=== PATIENT | female | born 1950 | race Caucasian/White ===

== ENCOUNTER 2020-07-11 12:53 | Outpatient (CLI) | payer MEDICARE, SELFPAY ==
--- NOTE | ~2020-07-11 | MM_ITS ---
EXAMINATION: MM screening [facility] BI w ying HISTORY: Screening mammogram TECHNIQUE: Craniocaudal and mediolateral oblique 3-D tomosynthesis images were obtained and synthetic 2-D images were generated. CAD analysis was submitted and interpreted. COMPARISON: 05/10/2019, 05/05/2018, 04/24/2017 BREAST PARENCHYMAL COMPOSITION: The breasts are heterogeneously dense, which may obscure small masses . FINDINGS: Scattered benign-appearing calcifications are present. There is no evidence of suspicious m ass, calcification, or architectural distortion to suggest malignancy in either breast. There has bee n no suspicious interval change. IMPRESSION: 1. No mammographic evidence of malignancy. 2. Recommend routine screening mammography in one year. BI-RADS Category 2: Benign finding(s). Reviewed, dictated and finalized at location A.
== END 2020-07-11 12:54 | disposition home or self-care (01) ==
PROVIDERS: PCP Internal Medicine; Visit Provider Student in an Organized Health Care Education/Training Program
DX: Z12.31 Encounter for screening mammogram for malignant neoplasm of breast (principal)
CPT/HCPCS: 77063; 77067

== ENCOUNTER 2021-08-21 10:14 | Outpatient (CLI) | payer MEDICARE, SELFPAY ==
--- NOTE | ~2021-08-21 | MM_ITS ---
EXAMINATION: MM screening [facility] BI w ying HISTORY: Screening mammogram TECHNIQUE: Craniocaudal and mediolateral oblique 3-D tomosynthesis images were obtained and synthetic 2-D images were generated. CAD analysis was submitted and interpreted. COMPARISON: 07/11/2020, 05/10/2019, 05/05/2018 bilateral screening mammogram examinations BREAST PARENCHYMAL COMPOSITION: There are scattered areas of fibroglandular density. FINDINGS: There is no evidence of suspicious mass, calcification, or architectural distortion to sugg est malignancy in either breast. There has been no suspicious interval change. IMPRESSION: 1. No mammographic evidence of malignancy. 2. Recommend routine screening mammography in one year. BI-RADS Category 1: Negative Reviewed, dictated and finalized at location A. 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
== END 2021-08-21 10:15 | disposition home or self-care (01) ==
LOC: ANHIMG 10:17
PROVIDERS: PCP Internal Medicine; Visit Provider Student in an Organized Health Care Education/Training Program
DX: Z12.31 Encounter for screening mammogram for malignant neoplasm of breast (principal)
CPT/HCPCS: 77063; 77067

== ENCOUNTER 2022-08-28 14:38 | Outpatient (CLI) | payer MEDICARE, SELFPAY ==
--- NOTE | ~2022-08-28 | DEXA_ITS ---
Bone Density Report Name: IHSAN SIBLEY Age: 72 Sex: Female Ethnicity: White Date of : 1950 Indication: postmenopausal; screening for osteoporosis; height loss; rheumatoid arthritis; Referring Provider: RUMA ANDRE Study: Bone densitometry was performed. Exam Date: August 28, 2022 Accession number: [id number] Bone Density: Region BMD T-score Z-score Classification AP Spine(L1, L2) 0.856 -1.1 0.9 Osteopenia World Health Organization criteria for BMD impression classify patients as: Normal (T-score at or above -1.0), Osteopenia (T-score between -1.0 and -2.5), or Osteoporosis (T-score at or below -2.5). Previous Exams: Region Exam Age BMD T-score BMD Change BMD Change Date g/cm2 vs Baseline vs Previous AP Spine (L1-L2) 08/28/2022 72 0.856 -1.1 -0.102 (-10.7% -0.102 (-10.7% 06/23/2017 67 0.959 -0.2 *Denotes significance at 95% confidence level, LSC for AP Spine = 0.022 g/cm2 Clinical Information Provided by Patient: Has rheumatoid arthritis Patient maximum height was 65.5 Menopause Age: 55 No regular weight bearing exercise Drinks caffeinated beverages Onset of menses at age 15 Number of children 3 Impression: The patient has low bone mass, based on the Total Spine T-score. The BMD for the AP Spine (L1-L2) decreased, changing by -10.7% since the last DXA exam. Discussion: BONE DENSITY IS LOW AT ONE OR MORE SKELETAL SITES. This patient's lowest T-score is low at one or more skeletal sites. It meets the World Health Organization's (WHO) criteria for ?low bone mass? (T-score between -1.0 and -2.5). The patient's 10-year risk of fracture as calculated by FRAX is less than the threshold where pharmacological therapy is recommended by the National Osteoporosis Foundation (NOF). However, all treatment decisions require clinical judgment and consideration of individual patient factors, including patient preferences, comorbidities, previous drug use, risk factors not captured in the FRAX model (e.g., frailty, falls, vitamin D deficiency, increased bone turnover, interval significant decline in bone density) and possible under or overestimation of fracture risk by FRAX. The patient should follow a healthful lifestyle (good nutrition with adequate calcium and vitamin D, and appropriate weight-bearing exercise). Follow-Up: Consider repeating this study in 2 years to reassess this patient's status, or sooner if there is some new clinical indication. Reported by: JOSE ALBERTO on 08/28/2022 3:08:00 PM. Reviewed, dictated and finalized at location AJoe GARVIN
--- NOTE | ~2022-08-28 | MM_ITS ---
EXAMINATION: MM screening [facility] BI w ying HISTORY: Screening TECHNIQUE: Craniocaudal and mediolateral oblique 3-D tomosynthesis images were obtained and synthetic 2-D images were generated. CAD analysis was submitted and interpreted. COMPARISON: Comparison to multiple prior studies sequentially, with oldest reviewed study dated 04/22. BREAST PARENCHYMAL COMPOSITION: There are scattered areas of fibroglandular density. FINDINGS: There is no evidence of suspicious mass, calcification, or architectural distortion to sugg est malignancy in either breast. There has been no suspicious interval change. IMPRESSION: 1. No mammographic evidence of malignancy. 2. Recommend routine screening mammography in one year. BI-RADS Category 1: Negative Reviewed, dictated and finalized at location A. NG CUTTER
== END 2022-08-28 14:39 | disposition home or self-care (01) ==
PROVIDERS: PCP Internal Medicine; Visit Provider Student in an Organized Health Care Education/Training Program
DX: Z12.31 Encounter for screening mammogram for malignant neoplasm of breast (principal); Z78.0 Asymptomatic menopausal state; M85.88 Other specified disorders of bone density and structure, other site
CPT/HCPCS: 77063; 77067; 77080

== ENCOUNTER 2023-04-03 10:50 | Outpatient (CLI) | payer MEDICARE, SELFPAY ==
--- NOTE | ~2023-04-03 | XR_ITS ---
XR abdomen/kub 1V 04/03/2023 11:08 INDICATION: Flank pain TECHNIQUE: KUB COMPARISON: 12/02/2006 FINDINGS: Bowel gas pattern is normal. There is no evidence of free air, mass, organomegaly, ascites or obstruction. No abnormal calculi are seen. The bones appear intact. There is moderate lumbar sp ondylosis with levoscoliosis. There are cholecystectomy clips. There are bilateral total hip arthropl asties. IMPRESSION: 1: No acute abdominal abnormality identified. Reviewed, dictated and finalized at location []
== END 2023-04-03 10:51 | disposition home or self-care (01) ==
LOC: ANHLAB 10:55 → ANHIMG 10:55
PROVIDERS: PCP Internal Medicine; Visit Provider Nurse Practitioner
DX: R19.7 Diarrhea, unspecified (principal); R14.0 Abdominal distension (gaseous); K56.699 Other intestinal obstruction unspecified as to partial versus complete obstruction
CPT/HCPCS: 74018

== ENCOUNTER 2023-04-04 09:56 | Outpatient (CLI) | payer MEDICARE, SELFPAY ==
[2023-04-04 11:49] LABS: Toxigenic C. Diff NEGATIVE (NEGATIVE)
== END 2023-04-04 09:57 | disposition home or self-care (01) ==
PROVIDERS: PCP Internal Medicine; Visit Provider Nurse Practitioner
DX: R14.0 Abdominal distension (gaseous) (principal); R19.7 Diarrhea, unspecified
CPT/HCPCS: 87177; 87209; 87269; 87493

== ENCOUNTER 2023-05-01 00:26 | Day surgery (SDC) | payer MEDICARE, SELFPAY ==
[2023-04-20 14:30] VITALS: BMI 33.0
--- NOTE | ~2023-05-01 | XR_ITS ---
EXAMINATION: XR abdomen/kub 1V DATE: 05/01/2023 11:22 INDICATION: Abdominal pain and distention. Post colonoscopy. TECHNIQUE: A supine view of the abdomen on 2 radiographs was obtained. COMPARISON: Abdomen radiograph 04/03/2023 FINDINGS: There is gaseous distention of the transverse colon. The small bowel is normal in caliber. Surgical clips in the right upper quadrant are likely from cholecystectomy. There are bilateral hip a rthroplasties. IMPRESSION: 1. Gaseous distention of the transverse colon, likely adynamic ileus. Reviewed, dictated and finalized at location A.
--- NOTE | 2023-05-01 08:10 | WPDANESEPPF ---
Anes - Initial Pre Proc Eval Procedure: Operation Date: 05/01/23 10:30 Proposed Procedures p Colonoscopy - Henry Vega MD Date/Time: 05/01/23 08:10 Surgeon: Henry Vega MD Pre Op Diagnosis: diarrhea, Patient Data Age: 73 Gender: F Height: 1.63 m Weight: 87.5 kg Allergies Allergy/AdvReac Type Severity Reaction Status Date / Time rofecoxib Allergy Severe GASTRIC Verified 05/01/23 09:34 ULCER ramipril Allergy Unknown SWELLING Verified 05/01/23 09:34 Home Medications Medication Instructions Recorded Confirmed Type Bifidobacterium infantis 10.5 mg 2 PO DAILY 06/19/20 04/03/23 History (10 million cell) chewable tablet (Align) azathioprine 50 mg tablet 50 mg PO BID 06/19/20 05/01/23 History diltiazem HCl 240 mg 240 mg PO DAILY 06/19/20 05/01/23 History capsule,extended release 24 hr duloxetine 60 mg capsule,delayed 60 mg PO DAILY 06/19/20 05/01/23 History release sprinkle esomeprazole magnesium 40 mg 40 mg PO DAILY 06/19/20 05/01/23 History capsule,delayed release hydroxychloroquine 200 mg tablet 400 mg PO DAILY 06/19/20 05/01/23 History losartan 100 mg tablet 100 mg PO DAILY 06/19/20 05/01/23 History multivitamin (Multiple Vitamins 1 tablet PO DAILY 06/19/20 05/01/23 History tablet) omega-3 fatty acids 1,000 mg 1,000 mg PO DAILY 06/19/20 05/01/23 History capsule (Fish Oil Concentrate) peg 400-propylene glycol 0.4 %-0.3 2 drop ophthalmic (eye) Q12H PRN 06/19/20 05/01/23 History % eye drops (Systane Ultra) Dry Eyes ropinirole 4 mg tablet,extended 4 mg PO DAILY 06/19/20 05/01/23 History release 24 hr metoprolol succinate 25 mg 25 mg PO DAILY 06/24/22 05/01/23 History tablet,extended release 24 hr calcium citrate 1,200 mg PO DAILY 04/20/23 05/01/23 History ferrous sulfate 325 mg PO DAILY 04/20/23 05/01/23 History Patient hx anesthesia problems: none Family hx anesthesia problems: none Results Review: All pre-operative results and documents have been reviewed as part of the pre-operative evaluation. [facility] Past Medical History Medical History Acid reflux Anxiety Bloating Chronic GERD Depression Diarrhea Hx of colonic polyps Hypertension Lupus (systemic lupus erythematosus) ROVERTO (obstructive sleep apnea) Osteopenia Peripheral neuropathy Rheumatoid arthritis Sjogrens syndrome Stenosis of colon Stress incontinence Surgical History Surgical History Hip joint replacement status History of cholecystectomy History of hysteroscopy S/p bilateral carpal tunnel release [place] teeth extracted Family History Family History Sibling Family history of diabetes mellitus in first degree relative Acute myocardial infarction Patient's brother is Diabetes mellitus Hypertension Father Family history of renal failure Mother Family history of heart disease in male family member before age 55 Hypertension Other Carcinoma of colon Cerebrovascular accident Family history of cardiovascular disease Family history of malignant neoplasm of breast Social History Social History Smoking status: Never smoker Second hand tobacco smoke exposure: No Alcohol intake: current Drinks per week: 3 Substance use: current Substance use type: marijuana Living arrangements: alone Spiritual care concerns: No Anes - Eval Final PreProcedure Day of Procedure 05/01/23 08:10 Patient weight: obese Heart: regular rate and rhythm Lungs: clear to auscultation and normal air movement Airway: Mallampati scale class II Neurological: alert and oriented Last oral intake: >/= 8 hours ASA classification: III Emergent: no Anesthetic plan: proceed Anesthesia type and monitoring: general GIVS Results Review: All pre-operative results
[2023-05-01 09:25] VITALS: BP 156/67; PULSE 92; RESP 18; TEMP 36.6; O2SAT 100; BMI 32.7
--- NOTE | 2023-05-01 09:40 | PM.HPGS ---
History of Present Illness History of Present Illness Consent: Risks, benefits, and alternatives have been discussed and questions answered. Patient agrees to proceed with procedure. Chief complaint: diarrhea, Narrative: Venus Jimenez is a 73 year old female Referred for investigation of persistent diarrhea. This began when she was in [place] in early February. She subsequently had stool cultures and fecal calprotectin when she returned. These were normal. She had tried Pepto-Bismol without benefit. She was tried on Imodium this made her gassy and bloated, although it did slow down her bowel movements. When she was seen in our office she was given a prescription for metronidazole. She states that this did help significantly with her bowel movements. Review of Systems Review of Systems: All systems reviewed & are unremarkable except as noted in HPI and below PMFSH Past Medical History Medical History Acid reflux Anxiety Bloating Chronic GERD Depression Diarrhea Hx of colonic polyps Hypertension Lupus (systemic lupus erythematosus) ROVERTO (obstructive sleep apnea) Osteopenia Peripheral neuropathy Rheumatoid arthritis Sjogrens syndrome Stenosis of colon Stress incontinence Surgical History Surgical History Hip joint replacement status History of cholecystectomy History of hysteroscopy S/p bilateral carpal tunnel release [place] teeth extracted Family History Family History Sibling Family history of diabetes mellitus in first degree relative Acute myocardial infarction Patient's brother is Diabetes mellitus Hypertension Father Family history of renal failure Mother Family history of heart disease in male family member before age 55 Hypertension Other Carcinoma of colon Cerebrovascular accident Family history of cardiovascular disease Family history of malignant neoplasm of breast Social History Social History Smoking status: Never smoker Second hand tobacco smoke exposure: No Alcohol intake: current Drinks per week: 3 Substance use: current Substance use type: marijuana Living arrangements: alone Spiritual care concerns: No Meds Home Medications and Allergies Home Medications Medication Instructions Recorded Confirmed Type Bifidobacterium infantis 10.5 mg 2 PO DAILY 06/19/20 04/03/23 History (10 million cell) chewable tablet (Align) azathioprine 50 mg tablet 50 mg PO BID 06/19/20 05/01/23 History diltiazem HCl 240 mg 240 mg PO DAILY 06/19/20 05/01/23 History capsule,extended release 24 hr duloxetine 60 mg capsule,delayed 60 mg PO DAILY 06/19/20 05/01/23 History release sprinkle esomeprazole magnesium 40 mg 40 mg PO DAILY 06/19/20 05/01/23 History capsule,delayed release hydroxychloroquine 200 mg tablet 400 mg PO DAILY 06/19/20 05/01/23 History losartan 100 mg tablet 100 mg PO DAILY 06/19/20 05/01/23 History multivitamin (Multiple Vitamins 1 tablet PO DAILY 06/19/20 05/01/23 History tablet) omega-3 fatty acids 1,000 mg 1,000 mg PO DAILY 06/19/20 05/01/23 History capsule (Fish Oil Concentrate) peg 400-propylene glycol 0.4 %-0.3 2 drop ophthalmic (eye) Q12H PRN 06/19/20 05/01/23 History % eye drops (Systane Ultra) Dry Eyes ropinirole 4 mg tablet,extended 4 mg PO DAILY 06/19/20 05/01/23 History release 24 hr metoprolol succinate 25 mg 25 mg PO DAILY 06/24/22 05/01/23 History tablet,extended release 24 hr calcium citrate 1,200 mg PO DAILY 04/20/23 05/01/23 History ferrous sulfate 325 mg PO DAILY 04/20/23 05/01/23 History Allergies Allergy/AdvReac Type Severity Reaction Status Date / Time rofecoxib Allergy Severe GASTRIC Verified 05/01/23 09:34 ULCER ramipril Allergy Unknown SWELLING Verified 05/01/23 09:
[2023-05-01] MEDS: LACTATED RINGERS 1,000 ML 150 ML IV CONT (10:11)
[2023-05-01 10:54] VITALS: BP 164/73; PULSE 83; RESP 20; O2SAT 99
[2023-05-01 11:04] VITALS: BP 163/72; PULSE 81; RESP 19; O2SAT 100
[2023-05-01] MEDS: fentaNYL CITRATE INJ (*CRX) 100 MCG/2 ML VIAL 25 MCG IV PUSH (11:05)
[2023-05-01 11:14] VITALS: BP 144/69; PULSE 78; RESP 17; O2SAT 100
== END 2023-05-01 11:49 | disposition home or self-care (01) ==
PROVIDERS: PCP Internal Medicine; Visit Provider Internal Medicine Gastroenterology
PROC: 0DJD8ZZ Inspection of Lower Intestinal Tract, Via Natural or Artificial Opening Endoscopic (ICD-10-PCS; CPT 45378; principal; 2023-05-01 10:30)
DX: R19.7 Diarrhea, unspecified (principal); I10 Essential (primary) hypertension; M32.9 Systemic lupus erythematosus, unspecified; M35.00 Sjogren syndrome, unspecified; M06.9 Rheumatoid arthritis, unspecified; G62.9 Polyneuropathy, unspecified; K21.9 Gastro-esophageal reflux disease without esophagitis; F32.A Depression, unspecified; G47.33 Obstructive sleep apnea (adult) (pediatric); E66.9 Obesity, unspecified; Z68.32 Body mass index [BMI] 32.0-32.9, adult
CPT/HCPCS: 45380; 74018; 88305; J2704; J3010; J7120

== ENCOUNTER 2023-10-08 13:33 | Outpatient (CLI) | payer MEDICARE, SELFPAY ==
--- NOTE | ~2023-10-08 | MM_ITS ---
EXAMINATION: MM screening [facility] BI w ying HISTORY: Screening mammogram TECHNIQUE: Craniocaudal and mediolateral oblique 3-D tomosynthesis images were obtained and synthetic 2-D images were generated. CAD analysis was submitted and interpreted. COMPARISON: 08/28/2022, 08/21/2021, 07/11/2020 bilateral screening mammogram examinations BREAST PARENCHYMAL COMPOSITION: There are scattered areas of fibroglandular density. FINDINGS: There is no evidence of suspicious mass, calcification, or architectural distortion to sugg est malignancy in either breast. There has been no suspicious interval change. IMPRESSION: 1. No mammographic evidence of malignancy. 2. Recommend routine screening mammography in one year. BI-RADS Category 1: Negative Reviewed, dictated and finalized at location A. 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
== END 2023-10-08 13:34 | disposition home or self-care (01) ==
LOC: ANHIMG 13:37
PROVIDERS: PCP Internal Medicine; Visit Provider Internal Medicine
DX: Z12.31 Encounter for screening mammogram for malignant neoplasm of breast (principal)
CPT/HCPCS: 77063; 77067

== ENCOUNTER 2024-10-13 13:48 | Outpatient (CLI) | payer MEDICARE, SELFPAY ==
--- NOTE | ~2024-10-13 | MM_ITS ---
EXAMINATION: MM screening [facility] BI w ying HISTORY: Screening mammogram TECHNIQUE: Craniocaudal and mediolateral oblique 3-D tomosynthesis images were obtained and synthetic 2-D images were generated. CAD analysis was submitted and interpreted. COMPARISON: 10/08/2023, 08/28/2022, 08/21/2021, 07/11/2020 BREAST PARENCHYMAL COMPOSITION:Not Dense. There are scattered areas of fibroglandular density. FINDINGS: No suspicious mass, calcification, or architectural distortion are identified in either mary kate ast to suggest malignancy. There has been no suspicious interval change. IMPRESSION: No mammographic evidence of malignancy. Recommend routine screening mammography in one year. BI-RADS Category 1: Negative Reviewed, dictated and finalized at location . KROOM COORDINATOR
== END 2024-10-13 13:49 | disposition home or self-care (01) ==
LOC: ANHIMG 13:49
PROVIDERS: PCP Internal Medicine; Visit Provider Nurse Practitioner Family
DX: Z12.31 Encounter for screening mammogram for malignant neoplasm of breast (principal)
CPT/HCPCS: 77063; 77067

== ENCOUNTER 2025-08-01 12:56 | Outpatient (CLI) | payer MEDICARE, SELFPAY ==
--- NOTE | ~2025-08-01 | DEXA_ITS ---
Bone Density Report Name: IHSAN SIBLEY Age: 75 Sex: Female Ethnicity: White Date of : 1950 Indication: osteopenia; prior fracture; hysterectomy; Referring Provider: ONI URIBE Study: Bone densitometry was performed. Exam Date: August 01, 2025 Accession number: [id number] Bone Density: Region BMD T-score Z-score Classification AP Spine(L1, L2) 0.886 -0.8 1.3 Normal World Health Organization criteria for BMD impression classify patients as: Normal (T-score at or above -1.0), Osteopenia (T-score between -1.0 and -2.5), or Osteoporosis (T-score at or below -2.5). Previous Exams: Region Exam Age BMD T-score BMD Change BMD Change Date g/cm2 vs Baseline vs Previous AP Spine (L1-L2) 08/01/2025 75 0.886 -0.8 -0.073 (-7.6%) 0.029 (3.4%)* 08/28/2022 72 0.856 -1.1 -0.102 (-10.7% -0.102 (-10.7% 06/23/2017 67 0.959 -0.2 *Denotes significance at 95% confidence level, LSC for AP Spine = 0.022 g/cm2 Clinical Information Provided by Patient: Have had a previous hip or vertebral fracture Has had a low trauma fracture Has used the following medications: Vitamin D, Calcium Has the following medical conditions: Hysterectomy Patient maximum height was 66 Menopause Age: 55 No regular weight bearing exercise Drinks caffeinated beverages Onset of menses at age 15 Number of children 3 Impression: The patient has normal bone mass. The patient has risk factors, including: previous fracture. No significant bone loss was observed. Discussion: INCREASED RISK OF FRACTURE DUE TO HISTORY OF FRACTURE. The patient's previous fracture puts the patient at high risk of a future fracture. In untreated patients, the risk of osteoporotic fracture increases approximately two-fold for each 1.0 SD decrease in T-score. Low bone density is not the only risk factor for fracture; also consider factors such as patient's age, frailty or poor health, risk of falling, risk of injury, previous osteoporotic fracture, family history of osteoporosis, cigarette smoking, low body weight, etc. Not everyone with a low trauma fracture has osteoporosis; osteomalacia and other metabolic bone disorders should also be considered. Patients who have osteoporosis should be evaluated for specific diseases and conditions (secondary causes) that may cause or contribute to bone loss and fracture risk. National Osteoporosis Foundation (NOF) recommends pharmacologic intervention for patients with a prior hip or vertebral fracture regardless of BMD T-score. The patient should follow a healthful lifestyle (good nutrition with adequate calcium and vitamin D, and appropriate weight-bearing exercise). Follow-Up: Consider a repeat BMD and Vertebral Fracture Assessment (VFA) exam in 2 years or sooner if medically necessary, to reassess this patient's status. Reported by: ISIDRO on 08/01/2025 1:54:00 PM. Reviewed, dictated and finalized at location A.
== END 2025-08-01 12:57 | disposition home or self-care (01) ==
PROVIDERS: PCP Internal Medicine; Visit Provider Nurse Practitioner Obstetrics & Gynecology
DX: Z78.0 Asymptomatic menopausal state (principal); Z87.81 Personal history of (healed) traumatic fracture
CPT/HCPCS: 77080